=== PATIENT | female | born 1995 | race Caucasian/White ===

== ENCOUNTER 2017-05-10 23:24 | Emergency (ER) | payer BC ==
--- NOTE | ~2017-05-10 | ER ---
PATIENT'S NAME: FAREED CARTER [facility] AGE: 21 Y [address] ROOM: [place] [address] LOCATION: [facility] ADMIT DATE: 05/10/2017 ER/Outpatient Report DISCHARGE DATE: 05/11/2017 FAMILY PHYSICIAN: Dagoberto Moreland MD ATTENDING PHYSICIAN: Kay Rodriguez Time of arrival: 2324 Time of patient evaluation: 2339 CHIEF COMPLAINT: Dog bite to right forearm. HISTORY OF PRESENT ILLNESS: This is a 21-year-old female who presents to the ER and states that she was out east of [facility] with her friends and all other animals. She states her friend's dog and her dog got into a fight over some food, she went to break up the fight, and her friend's Labrador bit her in the right forearm. She states that she did not get bit anywhere else. She states that she has full range of motion of her right upper extremity and states that she is up to date on all her immunizations. She did sustain two lacerations to her forearm. The [facility] police were notified and did come and interview her here in the emergency room. ALLERGIES: NO KNOWN ALLERGIES. MEDICATIONS: Please see medication list, nurse's notes. PAST MEDICAL HISTORY: Asthma. She has had tubes in her ears twice. SOCIAL HISTORY: She drinks alcohol socially. Denies any smoking or drug use. REVIEW OF SYSTEMS: CONSTITUTIONAL: Denies any change in weight or fatigue. MUSCULOSKELETAL: No weakness or myalgias. HEMATOLOGIC: No easy bruising or bleeding. SKIN: Has a dog bite to right forearm. PHYSICAL EXAMINATION: VITAL SIGNS: Height 5 feet 4 inches stated, weight 73.1 kg taken, blood pressure is 121/79, pulse 82, respirations 18, temperature 98.3 degrees tympanically, saturations 94% on room air. Kimmell Coma Score is 15. PATIENT'S NAME: FAREED CARTER [facility] AGE: 21 Y [address] ROOM: [place] [address] LOCATION: [facility] ADMIT DATE: 05/10/2017 ER/Outpatient Report DISCHARGE DATE: 05/11/2017 FAMILY PHYSICIAN: Dagoberto Moreland MD ATTENDING PHYSICIAN: Kay Rodriguez GENERAL: Alert, calm, well-developed female, in no acute distress. EXTREMITIES: No clubbing or cyanosis. She does have full range of motion of her right upper extremity and good radial pulse. She has full range of motion in all her limbs. NEUROLOGIC: Cranial nerves 2 through 12 grossly intact. Gait is steady without assistance. SKIN: She has two lacerations from dog bite to her right forearm; one is on the medial side and one is on the lateral side of the arm. The bigger laceration measured 4 cm and the smaller laceration measures 2.5 cm. They are not actively bleeding at this time. LABORATORY DATA: None were done. X-RAYS: The patient refused. IMPRESSION: Dog bite to right forearm causing two lacerations; one measuring 4 cm and second measuring 2.5 cm. ASSESSMENT AND PLAN: I did numb each laceration site with 1% lidocaine with epinephrine. Cleansed the site with Betadine and thoroughly washed out of the dog bite areas with a liter of normal saline. I then repaired each laceration with 4-0 Ethilon. The patient did tolerate this well and we did place antibiotic ointment and bandage to the area. I will dismiss her to home with the wound care handout. I will cover her with Keflex and have her follow up with primary care physician in 7 to 10 days for suture removal. She should return sooner if she shows any signs of infection. The patient understands and agrees. KINA GONZALEZ PA-C FOR MD ALIVIA CHEUNG/adin /[id number] d: t: 05/14/17 1158, OUTPATIENT REPORT
[~2017-05-10 23:24] MED LIST: NEXPLANON68 MG IL; PROVENTIL OR V6.7 GM INH; ZYRTEC-D TABLE1 EACH PO
== END 2017-05-11 00:34 | disposition disaster alternative care site (69) ==
LOC: GACC 23:24
PROC: 0HQFXZZ Repair Right Hand Skin, External Approach (ICD-10-PCS; principal; 2017-05-10)
DX: S51.811A Laceration without foreign body of right forearm, initial encounter (principal); J45.909 Unspecified asthma, uncomplicated; W54.0XXA Bitten by dog, initial encounter